=== PATIENT | female | born 1950 | race Hispanic/Latino ===

== ENCOUNTER 2018-08-20 11:21 | Outpatient (CLI) | payer MEDICARE | END 2018-08-20 11:22 | disposition home or self-care (01) | LOC: BICMAMMO 11:21 | PROVIDERS: ATTEND Family Medicine | DX: Z12.31 Encounter for screening mammogram for malignant neoplasm of breast (principal); R92.1 Mammographic calcification found on diagnostic imaging of breast; Z80.3 Family history of malignant neoplasm of breast; Z85.43 Personal history of malignant neoplasm of ovary | CPT/HCPCS: 77063; 77067 ==

== ENCOUNTER 2019-11-26 14:53 | Outpatient (CLI) | payer MEDICARE ==
--- NOTE | 2019-11-26 15:55 | MMO ---
Bilateral MAMMO Bilat Screen [facility]. CLINICAL HISTORY: Patient is 69 years old and is seen for screening. VIEWS: The views performed were: bilateral craniocaudal with tomosynthesis and bilateral mediolateral oblique with tomosynthesis. FILMS COMPARED: The present examination has been compared to prior imaging studies performed at [facility] on 07/24/2017, 08/16/2017 and 08/20/2018, and at [facility] on 11/24/2015. This study has been interpreted with the assistance of computer-aided detection. MAMMOGRAM FINDINGS: There are scattered fibroglandular densities. There are stable benign appearing calcifications seen in both breasts. There are no suspicious masses, suspicious calcifications, or new areas of architectural distortion. IMPRESSION: THERE IS NO MAMMOGRAPHIC EVIDENCE OF MALIGNANCY. A ROUTINE FOLLOW-UP MAMMOGRAM IN 1 YEAR IS RECOMMENDED. THE RESULTS OF THIS EXAM WERE SENT TO THE PATIENT. ACR BI-RADS Category 2 - Benign finding MAMMOGRAPHY NOTE: 1. A negative mammogram report should not delay a biopsy if a dominant of clinically suspicious mass is present. 2. Approximately 10% to 15% of breast cancers are not detected by mammography. 3. Adenosis and dense breasts may obscure an underlying neoplasm. Reported by: NELSON TORRES MD Electonically Signed: [id number]
== END 2019-11-26 14:54 | disposition home or self-care (01) ==
LOC: BICMAMMO 14:53
PROVIDERS: ATTEND Family Medicine
DX: Z12.31 Encounter for screening mammogram for malignant neoplasm of breast (principal)
CPT/HCPCS: 77063; 77067

== ENCOUNTER 2020-09-23 09:44 | Outpatient (CLI) | payer MEDICARE ==
--- NOTE | 2020-09-23 10:57 | MRI ---
MR the lumbar spine without contrast: 09/23/2020 History: Low back pain, right hip pain, radiculopathy COMPARISON: None. TECHNIQUE: Multiplanar multisequence MR images were obtained of lumbar spine without IV contrast FINDINGS: On the basis of 5 lumbar type vertebral bodies, conus medullaris terminates at theL1-2 level. The sagittal STIR imaging demonstrates degenerative edematous endplate changes at the L5-S1, L1-2, an d L2-3 level. There is significant mid lumbar spine levoscoliosis, centered at the L2-3 level. T12-L1:There is disc space narrowing and disc desiccation with mild disc bulge. No significant centra l canal stenosis. There is significant bilateral facet hypertrophy with moderate right and mild left neural foraminal s tenosis. L1-2:There is disc space narrowing and disc desiccation with disc bulge. There is bilateral facet hyp ertrophy and hypertrophy of the ligamentum flavum, right greater than left. Mild central canal stenosis with moderate right lateral recess stenosis. There is severe right neural foraminal stenosis and mild left neural foraminal stenosis. L2-3:There is disc space narrowing with disc desiccation and disc bulge. There is bilateral facet hyp ertrophy and hypertrophy of the ligamentum flavum. There is moderate central canal stenosis, moderate right neural foraminal stenosis, and mild left neural foraminal stenosis. L3-4:There is disc space and with disc desiccation and disc bulge. Prominent bilateral facet hypertro phy and hypertrophy of ligamentum flavum. Mild/moderate central canal stenosis. Mild right and severe left neural foraminal stenosis. L4-5:There is anterolisthesis at L4-5 measuring 1.3 cm. There is partial osseous fusion at the L4-5 l evel. Severe central canal stenosis. Bilateral facet hypertrophy with severe bilateral neural foraminal stenosis. L5-S1:There is disc desiccation and bilateral facet hypertrophy. Moderate bilateral neural foraminal stenosis. No significant central canal stenosis. Image retroperitoneal structures demonstratea lobulated contour of the upper pole of the right kidney , similar when compared to a CT of the chest performed 03/28/2012. IMPRESSION: Prominent multilevel degenerative change within the lumbar spine as described above.
--- NOTE | 2020-09-23 11:00 | RAD ---
4 views of the lumbar spine: 09/23/2020 COMPARISON: None HISTORY: Chronic right-sided hip pain, low back pain, radiculopathy FINDINGS: Severe levoscoliosis noted within the lumbar spine centered at the L2 level. Prominent dege nerative change of bilateral sacroiliac joints. Multiple postoperative clips are noted in the retroperitoneum. Multilevel disc space narrowing and degenerative endplate change. Anterolisthesis at L4-5 noted measu ring approximately 2 cm on neutral, flexion, and extension lateral views. No acute fracture is evident. IMPRESSION: Severe degenerative changes with prominent levoscoliosis of the lumbar spine and signific ant anterolisthesis at L4-5. Findings are better assessed on MRI also performed 09/23/2020
== END 2020-09-23 09:45 | disposition home or self-care (01) ==
LOC: BICMRI 09:44
PROVIDERS: ATTEND Surgery
DX: M54.5 Low back pain (principal); M25.551 Pain in right hip; M16.11 Unilateral primary osteoarthritis, right hip; M41.9 Scoliosis, unspecified; M43.16 Spondylolisthesis, lumbar region; M47.816 Spondylosis without myelopathy or radiculopathy, lumbar region
CPT/HCPCS: 72110; 72148

== ENCOUNTER 2021-02-02 13:00 | Inpatient (IN) | payer MEDICARE ==
[2021-02-02] MEDS ORDERED: Ondansetron PF 4 MG/2 ML Vial ONE (13:10)
[2021-02-02] MEDS ORDERED: Morphine 4 MG/ML VIAL ONE ×2 (13:18→17:31)
[2021-02-02 13:29] LABS: #Eosinphils 0.1 thou/uL (0.0-0.7); #Lymphocytes 3.7 thou/uL (1.20-3.40); #Neutrophils 10.9 thou/uL (1.40-6.50); %Basophils 0.3 % (0.0-1.0); %Eosinophils 0.9 % (0.0-10.0); %Lymphocytes 23.3 % (21.0-51.0); %Monocytes 6.3 % (0.0-10.0); %Neutrophils 69.3 % (42.0-75.0); Hemoglobin 11.7 g/dL (12.0-16.0); Mean Corpuscular HGB CONC 31.8 g/dL (32.0-36.0); Mean Corpuscular Hemoglobin 26.2 pg (27.0-31.0); Mean Corpuscular Volume 82.3 fL (78.0-98.0); Mean Platelet Volume 8.9 fL (7.4-10.4); Platelet Count 285 thou/uL (130-400); RBC Distribution Width 16.4 % (11.5-14.5); Red Blood Cell (RBC) Count 4.46 mill/uL (4.20-5.40); White Blood Cell (WBC) Count 15.8 thou/uL (4.8-10.8)
[2021-02-02 13:51] LABS: ALT (SGPT) 30 U/L (8-55); AST (SGOT) 82 U/L (5-34); Albumin 4.1 g/dL (3.4-4.8); Alkaline Phosphatase 97 U/L (40-110); Anion Gap 16 mmol/L (10-20); BUN (Urea Nitrogen) 18 mg/dL (9.8-20.1); Bilirubin, Total 1.3 mg/dL (0.2-1.2); Calc. Creatinine Clearance 0 mL/min (70-130); Calcium 9.9 mg/dL (7.8-10.44); Carbon Dioxide 23 mmol/L (23-31); Chloride 102 mmol/L (98-107); Globulin 3.5 g/dL (2.4-3.5); Glucose 163 mg/dL (80-115); Potassium 3.9 mmol/L (3.5-5.1); Protein, Total 7.6 g/dL (5.8-8.1); Sodium 137 mmol/L (136-145)
[2021-02-02] MEDS ORDERED: Dextrose 50% Abboject 50 ML SYRINGE ONE (14:10)
[2021-02-02] MEDS ORDERED: Promethazine HCl 25 MG/ML VIAL ONE (14:42)
[2021-02-02 14:47] LABS: Lipase 6435 U/L (8-78)
[2021-02-02] MEDS ORDERED: Haloperidol Lactate 5 MG/ML VIAL ONE (15:47)
[2021-02-02 19:14] VITALS: BMI 27.8
[2021-02-02] MEDS ORDERED: hydrALAZINE 20 MG/ML VIAL SLOW IVP PRN (19:17)
[2021-02-02] MEDS ORDERED: Morphine 4 MG/ML VIAL SLOW IVP PRN (19:18)
[2021-02-02] MEDS ORDERED: Lactated Ringer's 1,000 ML IV SCH (19:30)
[2021-02-02] MEDS ORDERED: Acetaminophen 325 MG TAB PO PRN (19:30)
[2021-02-02] MEDS ORDERED: Ondansetron PF 4 MG/2 ML Vial IVP PRN (19:30)
[2021-02-02] MEDS ORDERED: Ondansetron ODT 4 MG TAB SL PRN (19:30)
[2021-02-02] MEDS: Ondansetron PF 4 MG/2 ML Vial IVP PRN (19:48)
[2021-02-02] MEDS: Lactated Ringer's 1,000 ML IV SCH (19:48)
[2021-02-02 21:22] LABS: Hemoglobin 11.5 g/dL (12.0-16.0)
[2021-02-02] MEDS: Promethazine HCl 12.5 MG in Sodium Chloride 0.9% 50 ML IVPB PRN (21:41)
[2021-02-02] MEDS: Morphine 4 MG/ML VIAL SLOW IVP PRN (21:49)
[2021-02-03 01:50] LABS: SARS-CoV-2 PCR by NAA Not Detected (NotDetected)
[2021-02-03] MEDS: Ondansetron PF 4 MG/2 ML Vial IVP PRN (02:08)
[2021-02-03] MEDS: Morphine 4 MG/ML VIAL SLOW IVP PRN ×4 (02:08→23:49)
[2021-02-03] MEDS: Lactated Ringer's 1,000 ML IV SCH ×3 (02:08→19:36)
[2021-02-03 06:45] LABS: Band 3 % (5-11); Hemoglobin 11.8 g/dL (12.0-16.0); Lymphocytes 6 % (21-51); MDiff Complete? YES; Mean Corpuscular HGB CONC 31.4 g/dL (32.0-36.0); Mean Corpuscular Hemoglobin 26.3 pg (27.0-31.0); Mean Corpuscular Volume 83.6 fL (78.0-98.0); Monocytes 1 % (0-10); Neutrophil 90 % (42-75); Platelet Count 216 thou/uL (130-400); Platelet Morphology Comment Appears Adequate; RBC Distribution Width 16.6 % (11.5-14.5); Red Blood Cell (RBC) Count 4.51 mill/uL (4.20-5.40); White Blood Cell (WBC) Count 19.8 thou/uL (4.8-10.8)
[2021-02-03 06:54] LABS: ALT (SGPT) 37 U/L (8-55); AST (SGOT) 59 U/L (5-34); Albumin 3.3 g/dL (3.4-4.8); Alkaline Phosphatase 78 U/L (40-110); Anion Gap 16 mmol/L (10-20); BUN (Urea Nitrogen) 21 mg/dL (9.8-20.1); Bilirubin, Total 1.1 mg/dL (0.2-1.2); Calc. Creatinine Clearance 35 mL/min (70-130); Calcium 8.6 mg/dL (7.8-10.44); Carbon Dioxide 20 mmol/L (23-31); Cardiac Risk 1.8 (Less than 4.5); Chloride 106 mmol/L (98-107); Cholesterol 115 mg/dl (< 200 Desired); Globulin 3.3 g/dL (2.4-3.5); Glucose 129 mg/dL (80-115); HDL Cholesterol 65 mg/dL (>60 Neg Risk); LDL Cholesterol, Calculated 37 mg/dL; Lipase 591 U/L (8-78); Potassium 4.9 mmol/L (3.5-5.1); Protein, Total 6.6 g/dL (5.8-8.1); Sodium 137 mmol/L (136-145); Triglycerides 66 mg/dL (Less than 150)
[2021-02-03] MEDS: Enoxaparin Sodium 40 MG/0.4 ML SYRINGE SC SCH (08:55)
[2021-02-03] MEDS: Piperacillin/Tazobactam 3.375 GM in Sodium Chloride 0.9% 100 ML IVPB SCH ×3 (12:00→23:48)
[2021-02-03] MEDS ORDERED: Fentanyl 100 MCG/2 ML VIAL ONE (13:21)
[2021-02-03] MEDS ORDERED: HYDROmorphone 2 MG/ML VIAL ONE (13:22)
[2021-02-03] MEDS ORDERED: Lidocaine 1% w/Epinephrine 1:100K 20 ML VIAL ONE (13:25)
[2021-02-03] MEDS ORDERED: Bupivacaine PF 0.5% 30 ML VIAL ONE (13:25)
[2021-02-03] MEDS ORDERED: Iothalamate Meglumine 60% 50 ML VIAL FS ONE (13:25)
[2021-02-03] MEDS ORDERED: Propofol 1,000 MG/100 ML VIAL IV ONE (13:28)
[2021-02-03] MEDS ORDERED: Glycopyrrolate 0.2 MG/ML 5 ML SYRINGE ONE (13:51)
[2021-02-03] MEDS ORDERED: Rocuronium Bromide 10 MG/ML (10ML VIAL) ONE (13:51)
[2021-02-03] MEDS ORDERED: Lidocaine 1% PF 5 ML VIAL ONE (13:51)
[2021-02-03] MEDS ORDERED: PROPOFOL 200 MG/20 ML VIAL ONE (13:51)
[2021-02-03] MEDS ORDERED: Dexamethasone 20 MG/5 ML VIAL ONE (13:51)
[2021-02-03] MEDS ORDERED: Ondansetron PF 4 MG/2 ML Vial ONE (13:51)
[2021-02-03] MEDS ORDERED: PHENYLEPHRINE-NS 100 MCG/ML 10 ML SYRINGE ONE ×2 (13:51→14:43)
[2021-02-03] MEDS ORDERED: Ondansetron HCl/PF 4 MG/2 ML Vial IVP PRN (15:26)
[2021-02-03] MEDS ORDERED: Promethazine HCl 25 MG/ML VIAL IM PRN ×2 (15:26→15:28)
[2021-02-03] MEDS ORDERED: Promethazine HCl 25 MG/ML VIAL SLOW IVP PRN (15:26)
[2021-02-03] MEDS ORDERED: HYDROmorphone 2 MG/ML VIAL SLOW IVP PRN (15:26)
[2021-02-03] MEDS ORDERED: Dextrose 5% in Water 1,000 ML IV PRN (15:28)
[2021-02-03] MEDS ORDERED: Calcium Carbonate 500 MG ChewTAB PO PRN (15:28)
[2021-02-03] MEDS ORDERED: Mag-Al 1200 mg/1200 mg/30 ML UDCUP PO PRN (15:28)
[2021-02-03] MEDS ORDERED: Dextrose 50% Abboject 50 ML SYRINGE SLOW IVP PRN ×2 (15:28→18:20)
[2021-02-03] MEDS ORDERED: Morphine 4 MG/ML VIAL SLOW IVP PRN (15:49)
[2021-02-03] MEDS ORDERED: Insulin Regular 300 UNITS/3 ML VIAL SC PRN (18:20)
[2021-02-04] MEDS: Lactated Ringer's 1,000 ML IV SCH ×3 (04:04→19:46)
[2021-02-04] MEDS: Piperacillin/Tazobactam 3.375 GM in Sodium Chloride 0.9% 100 ML IVPB SCH ×4 (05:01→23:15)
[2021-02-04] MEDS: Morphine 4 MG/ML VIAL SLOW IVP PRN ×2 (05:07→10:38)
[2021-02-04 05:13] LABS: ALT (SGPT) 36 U/L (8-55); AST (SGOT) 54 U/L (5-34); Albumin 2.7 g/dL (3.4-4.8); Alkaline Phosphatase 55 U/L (40-110); Anion Gap 11 mmol/L (10-20); BUN (Urea Nitrogen) 23 mg/dL (9.8-20.1); Bilirubin, Total 1.3 mg/dL (0.2-1.2); Calc. Creatinine Clearance 46 mL/min (70-130); Calcium 8.1 mg/dL (7.8-10.44); Carbon Dioxide 20 mmol/L (23-31); Chloride 111 mmol/L (98-107); Globulin 2.6 g/dL (2.4-3.5); Glucose 125 mg/dL (80-115); Potassium 4.1 mmol/L (3.5-5.1); Protein, Total 5.3 g/dL (5.8-8.1); Sodium 138 mmol/L (136-145)
[2021-02-04 05:16] LABS: Band 29 % (5-11); Hemoglobin 9.3 g/dL (12.0-16.0); Lymphocytes 6 % (21-51); MDiff Complete? YES; Mean Corpuscular HGB CONC 31.8 g/dL (32.0-36.0); Mean Corpuscular Hemoglobin 26.7 pg (27.0-31.0); Mean Platelet Volume 9.6 fL (7.4-10.4); Monocytes 1 % (0-10); Neutrophil 64 % (42-75); Platelet Count 164 thou/uL (130-400); Platelet Morphology Comment Appears Adequate; RBC Distribution Width 16.9 % (11.5-14.5); Red Blood Cell (RBC) Count 3.49 mill/uL (4.20-5.40); White Blood Cell (WBC) Count 18.8 thou/uL (4.8-10.8)
[2021-02-04] MEDS: Enoxaparin Sodium 40 MG/0.4 ML SYRINGE SC SCH (09:00)
[2021-02-04] MEDS ORDERED: traMADol HCl 50 MG TAB PO PRN ×3 (09:11→09:19)
[2021-02-04] MEDS ORDERED: Docusate 100 MG CAP PO SCH (09:30)
[2021-02-04] MEDS ORDERED: Oxybutynin 5 MG TAB PO SCH ×2 (09:30→10:15)
[2021-02-04] MEDS ORDERED: Calcium Carbonate 600 MG + Vit D TAB PO SCH (09:30)
[2021-02-04] MEDS ORDERED: Rosuvastatin 10 MG TAB PO SCH (09:30)
[2021-02-04] MEDS: Famotidine/PF 20 mg/2ml Vial SLOW IVP SCH (10:31)
[2021-02-04] MEDS: Famotidine 20 MG TAB PO SCH (10:32)
[2021-02-04] MEDS ORDERED: Polyethylene Glycol 3350 17 GM Packet PO SCH (11:00)
[2021-02-04] MEDS: Ondansetron PF 4 MG/2 ML Vial IVP PRN (16:06)
[2021-02-04] MEDS: Amitriptyline HCl 10 MG TAB PO SCH (19:47)
[2021-02-04] MEDS: Gabapentin 300 MG CAP PO SCH (19:47)
[2021-02-04] MEDS ORDERED: Non-Formulary Item 1 EACH (Gabapentin [Gabapentin] 600 MG Tablet) PO SCH (21:00)
[2021-02-05] MEDS: Piperacillin/Tazobactam 3.375 GM in Sodium Chloride 0.9% 100 ML IVPB SCH ×4 (05:39→23:59)
[2021-02-05] MEDS: Lactated Ringer's 1,000 ML IV SCH ×3 (05:39→20:19)
[2021-02-05] MEDS: Ondansetron PF 4 MG/2 ML Vial IVP PRN (06:04)
[2021-02-05 06:08] LABS: #Eosinphils 0.1 thou/uL (0.0-0.7); #Lymphocytes 1.2 thou/uL (1.20-3.40); #Monocytes 0.8 thou/uL (0.11-0.59); #Neutrophils 17.3 thou/uL (1.40-6.50); %Basophils 0.1 % (0.0-1.0); %Eosinophils 0.4 % (0.0-10.0); %Lymphocytes 6.2 % (21.0-51.0); %Monocytes 3.9 % (0.0-10.0); %Neutrophils 89.4 % (42.0-75.0); Hemoglobin 10.6 g/dL (12.0-16.0); Mean Corpuscular HGB CONC 31.7 g/dL (32.0-36.0); Mean Corpuscular Hemoglobin 26.6 pg (27.0-31.0); Mean Corpuscular Volume 83.7 fL (78.0-98.0); Mean Platelet Volume 8.9 fL (7.4-10.4); Platelet Count 170 thou/uL (130-400); RBC Distribution Width 16.6 % (11.5-14.5); Red Blood Cell (RBC) Count 3.99 mill/uL (4.20-5.40); White Blood Cell (WBC) Count 19.3 thou/uL (4.8-10.8)
[2021-02-05 06:27] LABS: Lactic Acid 0.7 mmol/L (0.5-2.2)
[2021-02-05 06:31] LABS: Magnesium 1.9 mg/dL (1.6-2.6); Phosphorus 3.3 mg/dL (2.3-4.7)
[2021-02-05] MEDS: Promethazine HCl 12.5 MG in Sodium Chloride 0.9% 50 ML IVPB PRN ×2 (06:41→12:23)
[2021-02-05] MEDS ORDERED: Polyethylene Glycol 3350 17 GM Packet PO SCH (09:00)
[2021-02-05] MEDS ORDERED: ACARBOSE 25 MG PO SCH (09:00)
[2021-02-05] MEDS ORDERED: Non-Formulary Item 1 EACH (Calcium Carb/Vitamin D3/Vit K1 [Calcium + D Soft Chewable Tabl PO SCH (09:00)
[2021-02-05] MEDS: Calcium Carbonate 600 MG + Vit D TAB PO SCH (09:39)
[2021-02-05] MEDS: Famotidine/PF 20 mg/2ml Vial SLOW IVP SCH (09:43)
[2021-02-05] MEDS: Enoxaparin Sodium 40 MG/0.4 ML SYRINGE SC SCH (09:44)
[2021-02-05] MEDS: Docusate 100 MG CAP PO SCH (09:49)
[2021-02-05] MEDS: Rosuvastatin 10 MG TAB PO SCH (09:50)
[2021-02-05] MEDS: Famotidine 20 MG TAB PO SCH (09:50)
[2021-02-05] MEDS: Oxybutynin 5 MG TAB PO SCH (09:50)
[2021-02-05 11:35] LABS: Hemoglobin 11.8 g/dL (12.0-16.0); Lymphocytes 4 % (21-51); MDiff Complete? YES; Mean Corpuscular HGB CONC 32.1 g/dL (32.0-36.0); Mean Corpuscular Hemoglobin 26.9 pg (27.0-31.0); Mean Corpuscular Volume 83.8 fL (78.0-98.0); Mean Platelet Volume 8.9 fL (7.4-10.4); Monocytes 2 % (0-10); Neutrophil 94 % (42-75); Platelet Count 192 thou/uL (130-400); Platelet Morphology Comment Appears Adequate; RBC Distribution Width 16.6 % (11.5-14.5); Red Blood Cell (RBC) Count 4.37 mill/uL (4.20-5.40); White Blood Cell (WBC) Count 20.8 thou/uL (4.8-10.8)
[2021-02-05] MEDS ORDERED: Sodium Chloride 0.9% (PF) 10 ML VIAL FS PRN (14:45)
[2021-02-05] MEDS: Pantoprazole 40 MG VIAL IVP SCH (15:25)
[2021-02-05] MEDS: Morphine 4 MG/ML VIAL SLOW IVP PRN ×2 (17:43→22:21)
[2021-02-05] MEDS: Amitriptyline HCl 10 MG TAB PO SCH (20:18)
[2021-02-05] MEDS: Gabapentin 300 MG CAP PO SCH (20:18)
[2021-02-05] MEDS ORDERED: Pantoprazole 40 MG VIAL IVP SCH (21:00)
[2021-02-06] MEDS: Promethazine HCl 12.5 MG in Sodium Chloride 0.9% 50 ML IVPB PRN ×2 (00:41→20:04)
[2021-02-06] MEDS: Lactated Ringer's 1,000 ML IV SCH ×3 (02:35→20:26)
[2021-02-06] MEDS: Pantoprazole 40 MG VIAL IVP SCH ×2 (02:36→15:12)
[2021-02-06 05:49] LABS: #Eosinphils 0.1 thou/uL (0.0-0.7); #Monocytes 0.6 thou/uL (0.11-0.59); #Neutrophils 10.5 thou/uL (1.40-6.50); %Eosinophils 1.2 % (0.0-10.0); %Lymphocytes 8.4 % (21.0-51.0); %Monocytes 4.7 % (0.0-10.0); %Neutrophils 85.7 % (42.0-75.0); Hemoglobin 9.9 g/dL (12.0-16.0); Mean Corpuscular HGB CONC 31.3 g/dL (32.0-36.0); Mean Corpuscular Hemoglobin 26.3 pg (27.0-31.0); Platelet Count 151 thou/uL (130-400); RBC Distribution Width 16.7 % (11.5-14.5); Red Blood Cell (RBC) Count 3.76 mill/uL (4.20-5.40); White Blood Cell (WBC) Count 12.2 thou/uL (4.8-10.8)
[2021-02-06] MEDS: Piperacillin/Tazobactam 3.375 GM in Sodium Chloride 0.9% 100 ML IVPB SCH ×4 (06:15→23:15)
[2021-02-06 08:09] LABS: Anion Gap 10 mmol/L (10-20); BUN (Urea Nitrogen) 19 mg/dL (9.8-20.1); Calc. Creatinine Clearance 43 mL/min (70-130); Calcium 8.4 mg/dL (7.8-10.44); Carbon Dioxide 25 mmol/L (23-31); Chloride 113 mmol/L (98-107); Glucose 87 mg/dL (80-115); Potassium 3.9 mmol/L (3.5-5.1); Sodium 144 mmol/L (136-145)
[2021-02-06] MEDS: Oxybutynin 5 MG TAB PO SCH (09:00)
[2021-02-06] MEDS: Docusate 100 MG CAP PO SCH (09:00)
[2021-02-06] MEDS: Rosuvastatin 10 MG TAB PO SCH (09:00)
[2021-02-06] MEDS: Calcium Carbonate 600 MG + Vit D TAB PO SCH (09:00)
[2021-02-06] MEDS: Enoxaparin Sodium 40 MG/0.4 ML SYRINGE SC SCH (10:07)
[2021-02-06 13:06] LABS: Hemoglobin 9.9 g/dL (12.0-16.0); Mean Corpuscular HGB CONC 32.1 g/dL (32.0-36.0); Mean Corpuscular Hemoglobin 26.9 pg (27.0-31.0); Mean Corpuscular Volume 83.6 fL (78.0-98.0); Mean Platelet Volume 8.7 fL (7.4-10.4); Platelet Count 160 thou/uL (130-400); RBC Distribution Width 16.5 % (11.5-14.5); Red Blood Cell (RBC) Count 3.67 mill/uL (4.20-5.40)
[2021-02-06 13:24] LABS: ALT (SGPT) 24 U/L (8-55); AST (SGOT) 26 U/L (5-34); Albumin 2.7 g/dL (3.4-4.8); Alkaline Phosphatase 86 U/L (40-110); Anion Gap 13 mmol/L (10-20); BUN (Urea Nitrogen) 18 mg/dL (9.8-20.1); Bilirubin, Total 1.1 mg/dL (0.2-1.2); Calc. Creatinine Clearance 45 mL/min (70-130); Calcium 8.5 mg/dL (7.8-10.44); Carbon Dioxide 22 mmol/L (23-31); Chloride 112 mmol/L (98-107); Globulin 3.1 g/dL (2.4-3.5); Glucose 74 mg/dL (80-115); Lipase 62 U/L (8-78); Potassium 3.5 mmol/L (3.5-5.1); Protein, Total 5.8 g/dL (5.8-8.1); Sodium 143 mmol/L (136-145)
[2021-02-06] MEDS: hydrALAZINE 20 MG/ML VIAL SLOW IVP PRN ×2 (13:27→20:06)
[2021-02-06 13:37] LABS: Anisocytosis SLIGHT = 6-15 cells (100X) (0-5/hpf); Band 4 % (5-11); Lymphocytes 5 % (21-51); MDiff Complete? YES; Monocytes 3 % (0-10); Neutrophil 88 % (42-75); Platelet Morphology Comment Appears Adequate; Polychromasia SLIGHT = 2-3 cells (100X) (0-2/hpf)
[2021-02-06 14:25] LABS: Anion Gap 17 mmol/L (10-20); BUN (Urea Nitrogen) 19 mg/dL (9.8-20.1); Calc. Creatinine Clearance 44 mL/min (70-130); Calcium 8.8 mg/dL (7.8-10.44); Carbon Dioxide 19 mmol/L (23-31); Chloride 111 mmol/L (98-107); Glucose 64 mg/dL (80-115); Potassium 3.7 mmol/L (3.5-5.1); Sodium 143 mmol/L (136-145)
[2021-02-06] MEDS: Amitriptyline HCl 10 MG TAB PO SCH (20:56)
[2021-02-06] MEDS: Gabapentin 300 MG CAP PO SCH (20:56)
[2021-02-06] MEDS: Dextrose 5% in Water 1,000 ML IV PRN (23:15)
[2021-02-07] MEDS: Lactated Ringer's 1,000 ML IV SCH ×3 (03:21→20:26)
[2021-02-07] MEDS: Dextrose 5% in Water 1,000 ML IV PRN (03:22)
[2021-02-07] MEDS: Pantoprazole 40 MG VIAL IVP SCH ×2 (03:27→14:24)
[2021-02-07] MEDS: Piperacillin/Tazobactam 3.375 GM in Sodium Chloride 0.9% 100 ML IVPB SCH ×4 (05:09→23:08)
[2021-02-07 06:42] LABS: #Eosinphils 0.2 thou/uL (0.0-0.7); #Lymphocytes 0.7 thou/uL (1.20-3.40); #Monocytes 0.5 thou/uL (0.11-0.59); %Basophils 0.2 % (0.0-1.0); %Eosinophils 2.3 % (0.0-10.0); %Lymphocytes 9.3 % (21.0-51.0); %Monocytes 7.1 % (0.0-10.0); %Neutrophils 81.2 % (42.0-75.0); Hemoglobin 8.9 g/dL (12.0-16.0); Mean Corpuscular HGB CONC 32.6 g/dL (32.0-36.0); Mean Corpuscular Hemoglobin 26.9 pg (27.0-31.0); Mean Corpuscular Volume 82.4 fL (78.0-98.0); Mean Platelet Volume 8.4 fL (7.4-10.4); Platelet Count 124 thou/uL (130-400); RBC Distribution Width 16.2 % (11.5-14.5); White Blood Cell (WBC) Count 7.4 thou/uL (4.8-10.8)
[2021-02-07] MEDS: Rosuvastatin 10 MG TAB PO SCH (09:00)
[2021-02-07] MEDS: Docusate 100 MG CAP PO SCH (09:00)
[2021-02-07] MEDS: Oxybutynin 5 MG TAB PO SCH (09:00)
[2021-02-07] MEDS: Calcium Carbonate 600 MG + Vit D TAB PO SCH (09:00)
[2021-02-07] MEDS: Enoxaparin Sodium 40 MG/0.4 ML SYRINGE SC SCH (09:10)
[2021-02-07] MEDS: hydrALAZINE 20 MG/ML VIAL SLOW IVP PRN ×2 (12:12→17:07)
[2021-02-07] MEDS: Ondansetron PF 4 MG/2 ML Vial IVP PRN (17:23)
[2021-02-07] MEDS ORDERED: NIFEdipine XL 30 MG TAB PO SCH (18:45)
[2021-02-07] MEDS: Amitriptyline HCl 10 MG TAB PO SCH (21:06)
[2021-02-07] MEDS: Gabapentin 300 MG CAP PO SCH (21:07)
[2021-02-07] MEDS ORDERED: Lisinopril 10 MG TAB PO SCH (21:15)
[2021-02-07] MEDS ORDERED: Loperamide HCl 2 MG CAP PO SCH (22:53)
[2021-02-08] MEDS: Pantoprazole 40 MG VIAL IVP SCH ×2 (03:19→15:00)
[2021-02-08] MEDS: Lactated Ringer's 1,000 ML IV SCH (03:19)
[2021-02-08] MEDS: Piperacillin/Tazobactam 3.375 GM in Sodium Chloride 0.9% 100 ML IVPB SCH ×3 (05:22→18:00)
[2021-02-08] MEDS: hydrALAZINE 20 MG/ML VIAL SLOW IVP PRN ×2 (05:24→20:26)
[2021-02-08 06:41] LABS: #Lymphocytes 0.5 thou/uL (1.20-3.40); #Monocytes 0.3 thou/uL (0.11-0.59); #Neutrophils 4.6 thou/uL (1.40-6.50); %Basophils 0.9 % (0.0-1.0); %Eosinophils 0.5 % (0.0-10.0); %Lymphocytes 8.8 % (21.0-51.0); %Monocytes 5.3 % (0.0-10.0); %Neutrophils 84.5 % (42.0-75.0); Hemoglobin 9.1 g/dL (12.0-16.0); Mean Corpuscular HGB CONC 31.6 g/dL (32.0-36.0); Mean Corpuscular Volume 82.3 fL (78.0-98.0); Mean Platelet Volume 8.3 fL (7.4-10.4); Platelet Count 115 thou/uL (130-400); RBC Distribution Width 16.3 % (11.5-14.5); Red Blood Cell (RBC) Count 3.51 mill/uL (4.20-5.40); White Blood Cell (WBC) Count 5.5 thou/uL (4.8-10.8)
[2021-02-08 06:52] LABS: Anion Gap 13 mmol/L (10-20); BUN (Urea Nitrogen) 9 mg/dL (9.8-20.1); Calc. Creatinine Clearance 47 mL/min (70-130); Calcium 7.7 mg/dL (7.8-10.44); Carbon Dioxide 20 mmol/L (23-31); Chloride 108 mmol/L (98-107); Glucose 81 mg/dL (80-115); Sodium 138 mmol/L (136-145)
[2021-02-08 06:57] LABS: Potassium 2.5 mmol/L (3.5-5.1)
[2021-02-08] MEDS ORDERED: Lactated Ringer's 1,000 ML IV SCH (07:37)
[2021-02-08] MEDS ORDERED: NIFEdipine XL 30 MG TAB PO SCH (09:00)
[2021-02-08] MEDS: Ondansetron PF 4 MG/2 ML Vial IVP PRN ×2 (09:19→19:40)
[2021-02-08] MEDS: Docusate 100 MG CAP PO SCH (09:26)
[2021-02-08] MEDS: Calcium Carbonate 600 MG + Vit D TAB PO SCH (09:26)
[2021-02-08] MEDS: Enoxaparin Sodium 40 MG/0.4 ML SYRINGE SC SCH (09:26)
[2021-02-08] MEDS: Lisinopril 10 MG TAB PO SCH (09:27)
[2021-02-08] MEDS: Oxybutynin 5 MG TAB PO SCH (09:27)
[2021-02-08] MEDS: Rosuvastatin 10 MG TAB PO SCH (09:28)
[2021-02-08] MEDS: Potassium Chloride 20 MEQ in Premix Bag 1 BAG IVPB SCH ×2 (13:45→19:13)
[2021-02-08 16:44] LABS: Anion Gap 16 mmol/L (10-20); BUN (Urea Nitrogen) 9 mg/dL (9.8-20.1); Calc. Creatinine Clearance 49 mL/min (70-130); Calcium 7.4 mg/dL (7.8-10.44); Carbon Dioxide 17 mmol/L (23-31); Chloride 106 mmol/L (98-107); Glucose 75 mg/dL (80-115); Magnesium 1.3 mg/dL (1.6-2.6); Potassium 3.3 mmol/L (3.5-5.1); Sodium 136 mmol/L (136-145)
[2021-02-08] MEDS ORDERED: Magnesium Oxide 400 MG TAB PO SCH (17:30)
[2021-02-08] MEDS: Amitriptyline HCl 10 MG TAB PO SCH (20:27)
[2021-02-08] MEDS: Gabapentin 300 MG CAP PO SCH (20:27)
[2021-02-08] MEDS: Acetaminophen 500 MG TAB PO PRN (23:53)
[2021-02-09] MEDS: Pantoprazole 40 MG VIAL IVP SCH ×2 (02:51→17:44)
[2021-02-09 07:16] LABS: #Basophils 0.1 thou/uL (0.0-0.2); #Lymphocytes 0.2 thou/uL (1.20-3.40); #Monocytes 0.1 thou/uL (0.11-0.59); #Neutrophils 4.3 thou/uL (1.40-6.50); %Basophils 1.5 % (0.0-1.0); %Eosinophils 0.8 % (0.0-10.0); %Lymphocytes 4.6 % (21.0-51.0); %Neutrophils 90.1 % (42.0-75.0); Hemoglobin 10.1 g/dL (12.0-16.0); Mean Corpuscular HGB CONC 33.2 g/dL (32.0-36.0); Mean Corpuscular Hemoglobin 27.2 pg (27.0-31.0); Mean Corpuscular Volume 82.1 fL (78.0-98.0); Mean Platelet Volume 8.9 fL (7.4-10.4); Platelet Count 117 thou/uL (130-400); RBC Distribution Width 16.5 % (11.5-14.5); Red Blood Cell (RBC) Count 3.72 mill/uL (4.20-5.40); White Blood Cell (WBC) Count 4.8 thou/uL (4.8-10.8)
[2021-02-09 07:58] LABS: Anion Gap 15 mmol/L (10-20); BUN (Urea Nitrogen) 9 mg/dL (9.8-20.1); Calc. Creatinine Clearance 39 mL/min (70-130); Calcium 7.6 mg/dL (7.8-10.44); Carbon Dioxide 16 mmol/L (23-31); Chloride 106 mmol/L (98-107); Glucose 167 mg/dL (80-115); Magnesium 1.1 mg/dL (1.6-2.6); Sodium 134 mmol/L (136-145)
[2021-02-09] MEDS ORDERED: Loperamide HCl 2 MG CAP PO SCH ×2 (08:25→22:45)
[2021-02-09] MEDS: Lisinopril 10 MG TAB PO SCH (08:53)
[2021-02-09] MEDS: Amlodipine 5 MG TAB PO SCH (08:53)
[2021-02-09] MEDS: Lactinex Tablet PO SCH (08:53)
[2021-02-09] MEDS: Acetaminophen 500 MG TAB PO PRN ×2 (08:54→17:39)
[2021-02-09] MEDS: Oxybutynin 5 MG TAB PO SCH (08:54)
[2021-02-09] MEDS: Docusate 100 MG CAP PO SCH (08:54)
[2021-02-09] MEDS: Calcium Carbonate 600 MG + Vit D TAB PO SCH (08:55)
[2021-02-09] MEDS: Rosuvastatin 10 MG TAB PO SCH (09:00)
[2021-02-09] MEDS ORDERED: Iopamidol 370 76% 100 ML VIAL ONE (11:21)
[2021-02-09] MEDS: Cholestyramine/Aspartame 4 gm Packet PO SCH ×2 (13:30→22:10)
[2021-02-09] MEDS: Gabapentin 300 MG CAP PO SCH (20:32)
[2021-02-09] MEDS: Amitriptyline HCl 10 MG TAB PO SCH (20:32)
[2021-02-09] MEDS: Ondansetron PF 4 MG/2 ML Vial IVP PRN (20:41)
[2021-02-10] MEDS: hydrALAZINE 20 MG/ML VIAL SLOW IVP PRN (00:02)
[2021-02-10] MEDS: Acetaminophen 500 MG TAB PO PRN (00:52)
[2021-02-10 01:00] LABS: Bacteria/HPF None Seen HPF (None Seen); Bilirubin Negative (Negative); Blood, Urine 2+ (Negative); Clarity Clear (Clear); Glucose, Urine (Dipstick) Normal (Negative); Ketone, Urine Negative (Negative); Leukocyte 500 Leu/uL (Negative); Nitrite Negative (Negative); Protein, Urine (Dipstick) Negative (Neg-Trace); Specific Gravity, Urine 1.008 (1.002-1.036); Squamous Epithelial 0-3 HPF (0-3); Urobilinogen Normal mg/dL (Less than 2); WBC/HPF Greater than 50 HPF (0-3); Yeast-Budding 1+ HPF (None Seen); pH, Urine 6.5 (5.0-9.0)
[2021-02-10 01:02] LABS: Urine Culture Reflex Yes Yes
[2021-02-10] MEDS: Pantoprazole 40 MG VIAL IVP SCH ×2 (02:49→15:00)
[2021-02-10] MEDS ORDERED: Acetaminophen 325 MG TAB PO SCH (03:45)
[2021-02-10 07:44] LABS: Anion Gap 10 mmol/L (10-20); BUN (Urea Nitrogen) 9 mg/dL (9.8-20.1); Calc. Creatinine Clearance 36 mL/min (70-130); Calcium 7.5 mg/dL (7.8-10.44); Carbon Dioxide 21 mmol/L (23-31); Chloride 107 mmol/L (98-107); Glucose 80 mg/dL (80-115); Magnesium 1.1 mg/dL (1.6-2.6); Sodium 135 mmol/L (136-145)
[2021-02-10 08:08] LABS: #Lymphocytes 0.4 thou/uL (1.20-3.40); #Monocytes 0.1 thou/uL (0.11-0.59); #Neutrophils 3.4 thou/uL (1.40-6.50); %Eosinophils 0.4 % (0.0-10.0); %Lymphocytes 10.7 % (21.0-51.0); %Monocytes 3.3 % (0.0-10.0); %Neutrophils 85.6 % (42.0-75.0); Hemoglobin 8.5 g/dL (12.0-16.0); Mean Corpuscular HGB CONC 31.1 g/dL (32.0-36.0); Mean Corpuscular Hemoglobin 25.7 pg (27.0-31.0); Mean Corpuscular Volume 82.9 fL (78.0-98.0); Mean Platelet Volume 9.2 fL (7.4-10.4); Platelet Count 109 thou/uL (130-400); RBC Distribution Width 16.5 % (11.5-14.5); Red Blood Cell (RBC) Count 3.32 mill/uL (4.20-5.40)
[2021-02-10] MEDS ORDERED: Acetaminophen 325 MG TAB PO PRN (08:16)
[2021-02-10] MEDS ORDERED: Potassium Chloride 20 MEQ TAB PO SCH (08:45)
[2021-02-10] MEDS ORDERED: Magnesium 2 GM/50 ML 2 GM in Premix Bag 1 BAG IVPB SCH (09:00)
[2021-02-10] MEDS: Calcium Carbonate 600 MG + Vit D TAB PO SCH (09:37)
[2021-02-10] MEDS: Oxybutynin 5 MG TAB PO SCH (09:38)
[2021-02-10] MEDS: Cholestyramine/Aspartame 4 gm Packet PO SCH ×2 (09:38→20:21)
[2021-02-10] MEDS: Rosuvastatin 10 MG TAB PO SCH (09:38)
[2021-02-10] MEDS: Amlodipine 5 MG TAB PO SCH (09:38)
[2021-02-10] MEDS: Lactinex Tablet PO SCH (09:38)
[2021-02-10] MEDS: Lisinopril 10 MG TAB PO SCH (09:38)
[2021-02-10] MEDS: cefTRIAXone\\ROCEPHIN 2 GM in Sodium Chloride 0.9% 100 ML IVPB SCH (12:11)
[2021-02-10] MEDS ORDERED: Fentanyl 100 MCG/2 ML VIAL ONE ×2 (13:23→14:54)
[2021-02-10] MEDS ORDERED: PHENYLEPHRINE-NS 100 MCG/ML 10 ML SYRINGE ONE (13:34)
[2021-02-10] MEDS ORDERED: Lidocaine 1% PF 5 ML VIAL ONE (13:34)
[2021-02-10] MEDS ORDERED: Ondansetron PF 4 MG/2 ML Vial ONE (13:34)
[2021-02-10] MEDS ORDERED: PROPOFOL 200 MG/20 ML VIAL ONE (13:34)
[2021-02-10] MEDS ORDERED: Succinylcholine 200 MG/10 ml SYRINGE FS ONE (13:34)
[2021-02-10] MEDS ORDERED: Promethazine HCl 25 MG/ML VIAL IM PRN (14:12)
[2021-02-10] MEDS ORDERED: Promethazine HCl 25 MG/ML VIAL SLOW IVP PRN (14:12)
[2021-02-10] MEDS ORDERED: Ondansetron HCl/PF 4 MG/2 ML Vial IVP PRN (14:12)
[2021-02-10] MEDS ORDERED: Meperidine HCl/PF 25 MG/ML VIAL SLOW IVP PRN (14:12)
[2021-02-10] MEDS ORDERED: Iothalamate Meglumine 60% 50 ML VIAL FS ONE (14:17)
[2021-02-10] MEDS ORDERED: Meperidine HCl/PF 25 MG/ML VIAL ONE (14:27)
[2021-02-10] MEDS ORDERED: Sodium Bicarbonate 2.5 MEQ/5 ML VIAL ONE ×2 (14:53→14:58)
[2021-02-10] MEDS ORDERED: Midazolam HCl 2 mg/2 ml Vial ONE (14:54)
[2021-02-10 15:39] LABS: INR-International Normal Ratio 1.1; Prothrombin Time 14.8 sec (12.0-14.7)
[2021-02-10 15:40] LABS: PTT 39.3 sec (22.9-36.1)
[2021-02-10] MEDS: Amitriptyline HCl 10 MG TAB PO SCH (20:21)
[2021-02-10] MEDS: Gabapentin 300 MG CAP PO SCH (20:21)
[2021-02-11] MEDS: Pantoprazole 40 MG VIAL IVP SCH (00:35)
[2021-02-11 06:05] LABS: ALT (SGPT) 19 U/L (8-55); AST (SGOT) 26 U/L (5-34); Albumin 2.3 g/dL (3.4-4.8); Alkaline Phosphatase 85 U/L (40-110); Anion Gap 11 mmol/L (10-20); BUN (Urea Nitrogen) 10 mg/dL (9.8-20.1); Bilirubin, Total 0.3 mg/dL (0.2-1.2); Calc. Creatinine Clearance 59 mL/min (70-130); Calcium 7.4 mg/dL (7.8-10.44); Carbon Dioxide 21 mmol/L (23-31); Chloride 106 mmol/L (98-107); Globulin 2.7 g/dL (2.4-3.5); Glucose 170 mg/dL (80-115); Lipase 21 U/L (8-78); Magnesium 1.5 mg/dL (1.6-2.6); Potassium 3.5 mmol/L (3.5-5.1); Sodium 134 mmol/L (136-145)
[2021-02-11] MEDS: Oxybutynin 5 MG TAB PO SCH (10:57)
[2021-02-11] MEDS: Lisinopril 10 MG TAB PO SCH (10:59)
[2021-02-11] MEDS: Calcium Carbonate 600 MG + Vit D TAB PO SCH (10:59)
[2021-02-11] MEDS: Rosuvastatin 10 MG TAB PO SCH (10:59)
[2021-02-11] MEDS: Lactinex Tablet PO SCH (10:59)
[2021-02-11] MEDS: Amlodipine 5 MG TAB PO SCH (10:59)
[2021-02-11 12:27] VITALS: BP 134/63; TEMP 97.8
[2021-02-11] MEDS: cefTRIAXone\\ROCEPHIN 2 GM in Sodium Chloride 0.9% 100 ML IVPB SCH (13:06)
[2021-02-16 17:14] LABS: Yeast Identification Final report (.)
== END 2021-02-11 17:25 | disposition home health service (06) | DRG 417 ==
LOC: ERS 13:00 → ONC 17:03 → OBSVTOIN 19:08
PROVIDERS: ADMIT Hospitalist; ATTEND Internal Medicine
PROC: 0FT44ZZ Resection of Gallbladder, Percutaneous Endoscopic Approach (ICD-10-PCS; principal; 2021-02-03)
PROC: 0DNW4ZZ Release Peritoneum, Percutaneous Endoscopic Approach (ICD-10-PCS; 2021-02-03)
PROC: BF101ZZ Fluoroscopy of Bile Ducts using Low Osmolar Contrast (ICD-10-PCS; 2021-02-03)
PROC: 0D9670Z Drainage of Stomach with Drainage Device, Via Natural or Artificial Opening (ICD-10-PCS; 2021-02-03)
PROC: 0T933ZZ Drainage of Right Kidney Pelvis, Percutaneous Approach (ICD-10-PCS; 2021-02-10)
PROC: 0T943ZZ Drainage of Left Kidney Pelvis, Percutaneous Approach (ICD-10-PCS; 2021-02-10)
PROC: 0TJB8ZZ Inspection of Bladder, Via Natural or Artificial Opening Endoscopic (ICD-10-PCS; 2021-02-10)
DX: K85.10 Biliary acute pancreatitis without necrosis or infection (principal); A41.9 Sepsis, unspecified organism; K80.00 Calculus of gallbladder with acute cholecystitis without obstruction; K82.1 Hydrops of gallbladder; N17.9 Acute kidney failure, unspecified; K56.7 Ileus, unspecified; K91.89 Other postprocedural complications and disorders of digestive system; K52.1 Toxic gastroenteritis and colitis; N13.30 Unspecified hydronephrosis; N30.40 Irradiation cystitis without hematuria; K82.A1 Gangrene of gallbladder in cholecystitis; Z20.822 Contact with and (suspected) exposure to COVID-19; E11.9 Type 2 diabetes mellitus without complications; E78.5 Hyperlipidemia, unspecified; M54.9 Dorsalgia, unspecified; G89.29 Other chronic pain; K21.9 Gastro-esophageal reflux disease without esophagitis; E78.00 Pure hypercholesterolemia, unspecified; I11.9 Hypertensive heart disease without heart failure; K66.0 Peritoneal adhesions (postprocedural) (postinfection); T36.95XA Adverse effect of unspecified systemic antibiotic, initial encounter; R59.1 Generalized enlarged lymph nodes; B37.9 Candidiasis, unspecified; Z85.41 Personal history of malignant neoplasm of cervix uteri; Z92.21 Personal history of antineoplastic chemotherapy; Z92.3 Personal history of irradiation; Z79.84 Long term (current) use of oral hypoglycemic drugs; Z79.899 Other long term (current) drug therapy; Z90.710 Acquired absence of both cervix and uterus; Z88.2 Allergy status to sulfonamides; Z90.49 Acquired absence of other specified parts of digestive tract; Z88.1 Allergy status to other antibiotic agents; Z87.440 Personal history of urinary (tract) infections
CPT/HCPCS: 36415; 36416; 47532; 49060; 50431; 71045; 74018; 74177; 76705; 77002; 80048; 80053; 80061; 81001; 83605; 83690; 83735; 84100; 84145; 84484; 85025; 85610; 85730; 87040; 87070; 87077; 87086; 87106; 87186; 87205; 87324; 87449; 87635; 88304; 93005; 93970; 96374; 96375; 96376; C1729; C9113; G0378; J0360; J0696; J1100; J1170; J1630; J1650; J2175; J2250; J2270; J2405; J2543; J2550; J2704; J3010; J3475; J3480; J3490; Q9961; Q9967; S0020; S0028; U0003; U0005

== ENCOUNTER 2021-02-21 10:30 | Outpatient (CLI) | payer MEDICARE | END 2021-02-21 10:31 | disposition home or self-care (01) | LOC: NM 10:30 | PROVIDERS: ATTEND Urology | DX: N13.30 Unspecified hydronephrosis (principal); R94.4 Abnormal results of kidney function studies | CPT/HCPCS: 78708; A4641; A9562 ==

== ENCOUNTER 2021-03-08 06:52 | Day surgery (SDC) | payer MEDICARE ==
[2021-03-03 11:15] VITALS: BMI 27.8
[2021-03-08 07:29] VITALS: BP 110/71; TEMP 98.2
[2021-03-08] MEDS ORDERED: Iopamidol 300 61% 50 ML VIAL FS ONE (09:11)
== END 2021-03-08 10:10 | disposition home or self-care (01) ==
LOC: SPEC 06:52
PROVIDERS: ATTEND Urology
PROC: 0T25X0Z Change Drainage Device in Kidney, External Approach (ICD-10-PCS; principal; 2021-03-08)
DX: N13.1 Hydronephrosis with ureteral stricture, not elsewhere classified (principal); R07.89 Other chest pain; E11.9 Type 2 diabetes mellitus without complications; I10 Essential (primary) hypertension; G89.29 Other chronic pain; M54.9 Dorsalgia, unspecified; Z85.41 Personal history of malignant neoplasm of cervix uteri; Z79.84 Long term (current) use of oral hypoglycemic drugs; Z79.899 Other long term (current) drug therapy; Z88.1 Allergy status to other antibiotic agents; Z88.2 Allergy status to sulfonamides
CPT/HCPCS: 50436; 71045; 71046; 75984; 93005; C1729; 50431; 93010; Q9967

== ENCOUNTER 2021-03-20 23:08 | Inpatient (IN) | payer MEDICARE ==
[2021-03-20] MEDS ORDERED: Acetaminophen 500 MG TAB ONE (23:22)
[2021-03-20 23:37] LABS: #Basophils 0.1 thou/uL (0.0-0.2); #Eosinphils 0.1 thou/uL (0.0-0.7); #Lymphocytes 1.6 thou/uL (1.20-3.40); #Monocytes 0.8 thou/uL (0.11-0.59); #Neutrophils 10.6 thou/uL (1.40-6.50); %Basophils 0.7 % (0.0-1.0); %Eosinophils 0.4 % (0.0-10.0); %Lymphocytes 12.2 % (21.0-51.0); %Monocytes 5.8 % (0.0-10.0); Hemoglobin 11.1 g/dL (12.0-16.0); Mean Corpuscular HGB CONC 32.5 g/dL (32.0-36.0); Mean Corpuscular Hemoglobin 27.4 pg (27.0-31.0); Mean Corpuscular Volume 84.4 fL (78.0-98.0); Platelet Count 198 thou/uL (130-400); RBC Distribution Width 17.1 % (11.5-14.5); Red Blood Cell (RBC) Count 4.04 mill/uL (4.20-5.40); White Blood Cell (WBC) Count 13.1 thou/uL (4.8-10.8)
[2021-03-20 23:56] LABS: Bilirubin Negative (Negative); Blood, Urine Large (Negative); Clarity Clear (Clear); Glucose, Urine (Dipstick) Negative (Negative); Ketone, Urine Negative (Negative); Leukocyte Moderate (Negative); Nitrite Negative (Negative); Protein, Urine (Dipstick) 100 mg/dL (Neg-Trace); Urobilinogen 0.2 mg/dL (Less than 2); pH, Urine 6.5 (5.0-9.0)
[2021-03-21] LABS: ALT (SGPT) 21 U/L (8-55); AST (SGOT) 28 U/L (5-34); Albumin 3.2 g/dL (3.4-4.8); Alkaline Phosphatase 85 U/L (40-110); Anion Gap 16 mmol/L (10-20); BUN (Urea Nitrogen) 9 mg/dL (9.8-20.1); Bilirubin, Total 0.6 mg/dL (0.2-1.2); Calc. Creatinine Clearance 0 mL/min (70-130); Calcium 8.5 mg/dL (7.8-10.44); Carbon Dioxide 22 mmol/L (23-31); Chloride 98 mmol/L (98-107); Globulin 3.6 g/dL (2.4-3.5); Glucose 193 mg/dL (80-115); Protein, Total 6.8 g/dL (5.8-8.1); Sodium 132 mmol/L (136-145)
[2021-03-21 00:05] LABS: Bacteria/HPF Rare-Few HPF (None Seen); Transitional Epithelial 0-3 HPF (None Seen)
[2021-03-21] MEDS ORDERED: Clindamycin/D5W 600 mg/50 ml Premix Bag ONE (00:25)
[2021-03-21] MEDS ORDERED: MEROPENEM 1 GM/50 ML 1 GM in Premix Bag 1 BAG IVPB SCH (01:45)
[2021-03-21] MEDS ORDERED: Norepinephrine 8 MG/0.9% NS 250 ML ONE (02:07)
[2021-03-21 04:45] VITALS: BMI 26.2
[2021-03-21 05:04] LABS: SARS-CoV-2 NAA Rapid Test DETECTED (NotDetected)
[2021-03-21] MEDS ORDERED: Ondansetron PF 4 MG/2 ML Vial IVP PRN (06:06)
[2021-03-21] MEDS ORDERED: Dextrose 50% Abboject 50 ML SYRINGE SLOW IVP PRN (06:07)
[2021-03-21] MEDS ORDERED: Dextrose 5% in Water 1,000 ML IV PRN (06:07)
[2021-03-21] MEDS ORDERED: HumaLOG 300 UNITS/3 ML VIAL SC PRN ×2 (06:07)
[2021-03-21] MEDS ORDERED: VANC IVPB PRN (06:09)
[2021-03-21] MEDS ORDERED: Norepinephrine 8 MG/0.9% NS 250 ML IVPB SCH (06:30)
[2021-03-21] MEDS: Sodium Chloride 0.9% 1,000 ML IV SCH ×2 (06:36→19:15)
[2021-03-21 06:40] LABS: #Monocytes 0.7 thou/uL (0.11-0.59); #Neutrophils 8.8 thou/uL (1.40-6.50); %Basophils 0.3 % (0.0-1.0); %Eosinophils 0.2 % (0.0-10.0); %Monocytes 6.3 % (0.0-10.0); %Neutrophils 76.1 % (42.0-75.0); Mean Corpuscular HGB CONC 32.2 g/dL (32.0-36.0); Mean Corpuscular Hemoglobin 27.3 pg (27.0-31.0); Mean Corpuscular Volume 84.7 fL (78.0-98.0); Mean Platelet Volume 8.8 fL (7.4-10.4); Platelet Count 162 thou/uL (130-400); RBC Distribution Width 16.9 % (11.5-14.5); Red Blood Cell (RBC) Count 3.31 mill/uL (4.20-5.40); White Blood Cell (WBC) Count 11.5 thou/uL (4.8-10.8)
[2021-03-21 07:04] LABS: Anion Gap 9 mmol/L (10-20); BUN (Urea Nitrogen) 7 mg/dL (9.8-20.1); Calc. Creatinine Clearance 85 mL/min (70-130); Calcium 7.2 mg/dL (7.8-10.44); Carbon Dioxide 23 mmol/L (23-31); Chloride 108 mmol/L (98-107); Glucose 132 mg/dL (80-115); Potassium 3.4 mmol/L (3.5-5.1); Sodium 137 mmol/L (136-145)
[2021-03-21] MEDS: VANCOMYCIN 1.25 GM/250 ML BAG 1.25 GM in Premix Bag 1 BAG IVPB SCH (07:23)
[2021-03-21] MEDS ORDERED: Famotidine 20 MG TAB PO SCH (09:00)
[2021-03-21] MEDS: Tobramycin Sulfate 0.3% Ophth Susp 5 ml Bottle FS SCH ×2 (10:01→19:59)
[2021-03-21] MEDS: MEROPENEM 1 GM/50 ML 1 GM in Premix Bag 1 BAG IVPB SCH ×2 (10:01→19:16)
[2021-03-21] MEDS ORDERED: Iopamidol-370 76% 500 ML 1 ML ONE (13:56)
[2021-03-21] MEDS: Micafungin 100 MG in Sodium Chloride 0.9% 100 ML IVPB SCH (18:04)
[2021-03-22] MEDS: MEROPENEM 1 GM/50 ML 1 GM in Premix Bag 1 BAG IVPB SCH ×3 (01:32→16:21)
[2021-03-22] MEDS: Sodium Chloride 0.9% 1,000 ML IV SCH ×2 (01:32→19:02)
[2021-03-22 06:27] LABS: #Eosinphils 0.1 thou/uL (0.0-0.7); #Lymphocytes 1.8 thou/uL (1.20-3.40); #Monocytes 0.5 thou/uL (0.11-0.59); %Basophils 0.1 % (0.0-1.0); %Eosinophils 1.6 % (0.0-10.0); %Lymphocytes 27.3 % (21.0-51.0); %Monocytes 7.9 % (0.0-10.0); Hemoglobin 8.8 g/dL (12.0-16.0); Mean Corpuscular HGB CONC 32.8 g/dL (32.0-36.0); Mean Corpuscular Hemoglobin 28.1 pg (27.0-31.0); Mean Corpuscular Volume 85.8 fL (78.0-98.0); Mean Platelet Volume 8.7 fL (7.4-10.4); Platelet Count 159 thou/uL (130-400); RBC Distribution Width 16.7 % (11.5-14.5); Red Blood Cell (RBC) Count 3.11 mill/uL (4.20-5.40); White Blood Cell (WBC) Count 6.4 thou/uL (4.8-10.8)
[2021-03-22 06:51] LABS: Anion Gap 8 mmol/L (10-20); BUN (Urea Nitrogen) 4 mg/dL (9.8-20.1); Calc. Creatinine Clearance 91 mL/min (70-130); Calcium 7.7 mg/dL (7.8-10.44); Carbon Dioxide 24 mmol/L (23-31); Chloride 109 mmol/L (98-107); Glucose 78 mg/dL (80-115); Potassium 3.2 mmol/L (3.5-5.1); Sodium 138 mmol/L (136-145)
[2021-03-22] MEDS ORDERED: CHOLESTYRAMINE 4 GM PO SCH (09:00)
[2021-03-22] MEDS ORDERED: [UNRECOGNIZED DRUG - OTHER] PO SCH (09:00)
[2021-03-22] MEDS ORDERED: Non-Formulary Item 1 EACH (Mecobalamin [B12 Active] 1,000 MCG Tab.Chew) PO SCH (09:00)
[2021-03-22] MEDS ORDERED: Non-Formulary Item 1 EACH (Omeprazole [Omeprazole] 20 MG Tablet.Dr) PO SCH (09:00)
[2021-03-22] MEDS: Acetaminophen 325 MG TAB PO PRN ×2 (09:39→17:35)
[2021-03-22] MEDS ORDERED: Fentanyl 100 MCG/2 ML VIAL ONE (10:55)
[2021-03-22] MEDS ORDERED: Morphine 4 MG/ML VIAL SLOW IVP PRN (12:31)
[2021-03-22] MEDS: Rosuvastatin 10 MG TAB PO SCH (12:55)
[2021-03-22] MEDS: HYDROcodone/Acetaminophen 5/325 mg Tablet PO PRN (12:55)
[2021-03-22] MEDS: Cyanocobalamin (Vitamin B-12) 1,000 MCG TAB PO SCH (12:55)
[2021-03-22] MEDS: VANCOMYCIN 1.25 GM/250 ML BAG 1.25 GM in Premix Bag 1 BAG IVPB SCH (12:56)
[2021-03-22] MEDS: Tobramycin Sulfate 0.3% Ophth Susp 5 ml Bottle FS SCH ×3 (12:56→20:51)
[2021-03-22] MEDS: Cholestyramine/Aspartame 4 gm Packet PO SCH (13:18)
[2021-03-22] MEDS ORDERED: Iopamidol 300 61% 50 ML VIAL FS ONE (14:14)
[2021-03-22 14:40] LABS: INR-International Normal Ratio 1.1; Prothrombin Time 14.2 sec (12.0-14.7)
[2021-03-22 14:41] LABS: PTT 41.1 sec (22.9-36.1)
[2021-03-22] MEDS: Micafungin 100 MG in Sodium Chloride 0.9% 100 ML IVPB SCH (18:08)
[2021-03-22 18:21] LABS: SARS-CoV-2 IgG Ab Non-Reactive (NonReactive)
[2021-03-22 18:51] LABS: SARS-CoV-2 IgG Index 0.04 S/CO (< 1.40)
[2021-03-22] MEDS ORDERED: Amitriptyline HCl 10 MG TAB PO SCH (21:00)
[2021-03-22] MEDS ORDERED: Non-Formulary Item 1 EACH (Gabapentin [Gabapentin] 600 MG Tablet) PO SCH (21:00)
[2021-03-22] MEDS ORDERED: Gabapentin 300 MG CAP PO SCH (21:00)
[2021-03-23] MEDS: MEROPENEM 1 GM/50 ML 1 GM in Premix Bag 1 BAG IVPB SCH ×2 (00:13→09:10)
[2021-03-23] MEDS: HYDROcodone/Acetaminophen 5/325 mg Tablet PO PRN ×2 (04:17→08:50)
[2021-03-23 07:20] LABS: #Eosinphils 0.1 thou/uL (0.0-0.7); #Lymphocytes 1.2 thou/uL (1.20-3.40); #Monocytes 0.3 thou/uL (0.11-0.59); #Neutrophils 5.4 thou/uL (1.40-6.50); %Basophils 0.5 % (0.0-1.0); %Eosinophils 1.7 % (0.0-10.0); %Lymphocytes 16.4 % (21.0-51.0); %Monocytes 4.8 % (0.0-10.0); %Neutrophils 76.6 % (42.0-75.0); Hemoglobin 9.4 g/dL (12.0-16.0); Mean Corpuscular HGB CONC 32.1 g/dL (32.0-36.0); Mean Corpuscular Hemoglobin 27.3 pg (27.0-31.0); Mean Platelet Volume 8.6 fL (7.4-10.4); Platelet Count 163 thou/uL (130-400); RBC Distribution Width 16.7 % (11.5-14.5); Red Blood Cell (RBC) Count 3.45 mill/uL (4.20-5.40); White Blood Cell (WBC) Count 7.1 thou/uL (4.8-10.8)
[2021-03-23] MEDS ORDERED: Lidocaine 1% w/Epinephrine 1:100K 20 ML VIAL ONE (07:24)
[2021-03-23 07:37] LABS: Anion Gap 11 mmol/L (10-20); BUN (Urea Nitrogen) Less than 4 mg/dL (9.8-20.1); Calc. Creatinine Clearance 91 mL/min (70-130); Calcium 7.7 mg/dL (7.8-10.44); Carbon Dioxide 23 mmol/L (23-31); Chloride 102 mmol/L (98-107); Glucose 104 mg/dL (80-115); Sodium 133 mmol/L (136-145)
[2021-03-23 07:41] LABS: Potassium 2.9 mmol/L (3.5-5.1)
[2021-03-23] MEDS ORDERED: Lidocaine 1% w/Epinephrine 1:100K 20 ML VIAL FS SCH (08:00)
[2021-03-23] MEDS: Rosuvastatin 10 MG TAB PO SCH (08:09)
[2021-03-23] MEDS: Cyanocobalamin (Vitamin B-12) 1,000 MCG TAB PO SCH (08:09)
[2021-03-23] MEDS: Cholestyramine/Aspartame 4 gm Packet PO SCH (08:09)
[2021-03-23] MEDS: Tobramycin Sulfate 0.3% Ophth Susp 5 ml Bottle FS SCH (08:09)
[2021-03-23] MEDS: Potassium Chloride 20 MEQ TAB PO SCH ×2 (08:49→13:39)
[2021-03-23 12:23] VITALS: BP 103/69; TEMP 98.2
[2021-03-23 12:29] LABS: Vancomycin, Trough 6.7 ug/mL
[2021-03-23] MEDS ORDERED: Vancomycin 1 GM in Premix Bag 1 BAG IVPB SCH (13:00)
[2021-03-23] MEDS ORDERED: VANCOMYCIN 1.25 GM/250 ML BAG 1.25 GM in Premix Bag 1 BAG IVPB SCH (13:00)
== END 2021-03-23 16:27 | disposition home or self-care (01) | DRG 698 ==
LOC: ERS 23:08 → ERHOLD 03-21 02:19 → CCU 03-21 04:19 → T4-B 03-21 16:06
PROVIDERS: ADMIT Internal Medicine; ATTEND Internal Medicine
PROC: 8E0ZXY6 Isolation (ICD-10-PCS; principal; 2021-03-21)
PROC: 3E033XZ Introduction of Vasopressor into Peripheral Vein, Percutaneous Approach (ICD-10-PCS; 2021-03-21)
PROC: 0T25X0Z Change Drainage Device in Kidney, External Approach (ICD-10-PCS; 2021-03-22)
PROC: BT131ZZ Fluoroscopy of Bilateral Kidneys using Low Osmolar Contrast (ICD-10-PCS; 2021-03-22)
PROC: 0W9F3ZZ Drainage of Abdominal Wall, Percutaneous Approach (ICD-10-PCS; 2021-03-23)
DX: T83.512A Infection and inflammatory reaction due to nephrostomy catheter, initial encounter (principal); A41.9 Sepsis, unspecified organism; R65.21 Severe sepsis with septic shock; U07.1 COVID-19; B37.49 Other urogenital candidiasis; B49 Unspecified mycosis; N30.40 Irradiation cystitis without hematuria; E11.9 Type 2 diabetes mellitus without complications; K21.9 Gastro-esophageal reflux disease without esophagitis; E78.5 Hyperlipidemia, unspecified; E78.00 Pure hypercholesterolemia, unspecified; I11.9 Hypertensive heart disease without heart failure; G89.29 Other chronic pain; D64.9 Anemia, unspecified; H60.92 Unspecified otitis externa, left ear; B95.62 Methicillin resistant Staphylococcus aureus infection as the cause of diseases classified elsewhere; N13.9 Obstructive and reflux uropathy, unspecified; Z92.3 Personal history of irradiation; Z92.21 Personal history of antineoplastic chemotherapy; Z85.41 Personal history of malignant neoplasm of cervix uteri; Z90.710 Acquired absence of both cervix and uterus; Z83.3 Family history of diabetes mellitus; Z88.1 Allergy status to other antibiotic agents; Z79.84 Long term (current) use of oral hypoglycemic drugs; Z79.899 Other long term (current) drug therapy; Z90.49 Acquired absence of other specified parts of digestive tract; Z84.1 Family history of disorders of kidney and ureter; Z82.49 Family history of ischemic heart disease and other diseases of the circulatory system; Y84.8 Other medical procedures as the cause of abnormal reaction of the patient, or of later complication, without mention of misadventure at the time of the procedure
CPT/HCPCS: 0240U; 36415; 36416; 50431; 50436; 71045; 74177; 75984; 80048; 80053; 80202; 81003; 81015; 83605; 84484; 85025; 85610; 85730; 86769; 87040; 87070; 87077; 87086; 87186; 87205; 96365; 96367; 96375; C1729; J2185; J2248; J2270; J3010; J3370; J3490; Q9967

== ENCOUNTER 2021-04-21 06:53 | Day surgery (SDC) | payer MEDICARE ==
[2021-04-20 14:58] VITALS: BMI 24.8
[2021-04-21 07:45] VITALS: BP 129/74; TEMP 97.4
[2021-04-21] MEDS ORDERED: Iopamidol 300 61% 50 ML VIAL FS ONE (10:26)
== END 2021-04-21 09:45 | disposition home or self-care (01) ==
LOC: SPEC 06:53
PROVIDERS: ATTEND Urology
PROC: 0T25X0Z Change Drainage Device in Kidney, External Approach (ICD-10-PCS; principal; 2021-04-21)
DX: N13.1 Hydronephrosis with ureteral stricture, not elsewhere classified (principal); E11.9 Type 2 diabetes mellitus without complications; I10 Essential (primary) hypertension; E78.5 Hyperlipidemia, unspecified; G89.29 Other chronic pain; M54.5 Low back pain; N39.46 Mixed incontinence; Z85.41 Personal history of malignant neoplasm of cervix uteri; Z79.84 Long term (current) use of oral hypoglycemic drugs; Z79.899 Other long term (current) drug therapy; Z88.1 Allergy status to other antibiotic agents; Z88.2 Allergy status to sulfonamides
CPT/HCPCS: 50436; 75984; C1729; 50431; Q9967

== ENCOUNTER 2021-06-19 12:51 | Day surgery (SDC) | payer MEDICARE ==
[2021-06-16 14:23] VITALS: BMI 24.8
[~2021-06-19 12:51] MED LIST: Iopamidol 300 61% 50 ML VIAL FS ONE
[2021-06-19 13:25] VITALS: TEMP 97.7
[2021-06-19 15:11] VITALS: BP 137/66
== END 2021-06-19 15:00 | disposition home or self-care (01) ==
LOC: MERGE 12:51 → SPEC 12:51
PROVIDERS: ATTEND Urology
PROC: 0T25X0Z Change Drainage Device in Kidney, External Approach (ICD-10-PCS; principal; 2021-06-19)
DX: N13.1 Hydronephrosis with ureteral stricture, not elsewhere classified (principal); G89.29 Other chronic pain; M54.5 Low back pain; I10 Essential (primary) hypertension; E78.5 Hyperlipidemia, unspecified; E11.9 Type 2 diabetes mellitus without complications; N30.21 Other chronic cystitis with hematuria; N39.46 Mixed incontinence; Z85.41 Personal history of malignant neoplasm of cervix uteri; Z79.84 Long term (current) use of oral hypoglycemic drugs; Z79.899 Other long term (current) drug therapy; Z88.1 Allergy status to other antibiotic agents; Z88.2 Allergy status to sulfonamides
CPT/HCPCS: 50431; 50436; C1729; Q9967

== ENCOUNTER 2021-07-21 08:55 | Day surgery (SDC) | payer MEDICARE ==
[2021-07-13 12:28] VITALS: BMI 24.8
[2021-07-21 14:04] VITALS: BP 129/73; TEMP 97.6
== END 2021-07-21 11:00 | disposition home or self-care (01) ==
LOC: SPEC 08:55
PROVIDERS: ATTEND Urology
PROC: 0T25X0Z Change Drainage Device in Kidney, External Approach (ICD-10-PCS; principal; 2021-07-21)
DX: N13.1 Hydronephrosis with ureteral stricture, not elsewhere classified (principal); Z85.41 Personal history of malignant neoplasm of cervix uteri; Z79.84 Long term (current) use of oral hypoglycemic drugs; Z79.899 Other long term (current) drug therapy; Z88.1 Allergy status to other antibiotic agents; Z88.2 Allergy status to sulfonamides
CPT/HCPCS: 50436; C1729

== ENCOUNTER 2021-08-18 06:56 | Day surgery (SDC) | payer MEDICARE ==
[2021-08-16 12:57] VITALS: BMI 24.8
[2021-08-18 09:50] VITALS: BP 139/75; TEMP 98.3
[2021-08-18] MEDS ORDERED: Iopamidol 300 61% 50 ML VIAL FS ONE (10:30)
[2021-08-18] MEDS ORDERED: FLU VACC QS2021-22(65YR UP)/PF 240 MCG/0.7 ML SYRINGE IM ONE (13:45)
== END 2021-08-18 09:15 | disposition home or self-care (01) ==
LOC: SPEC 06:56
PROVIDERS: ATTEND Urology
PROC: 0T25X0Z Change Drainage Device in Kidney, External Approach (ICD-10-PCS; principal; 2021-08-18)
DX: N13.1 Hydronephrosis with ureteral stricture, not elsewhere classified (principal); Z85.41 Personal history of malignant neoplasm of cervix uteri; Z79.84 Long term (current) use of oral hypoglycemic drugs; Z79.899 Other long term (current) drug therapy; Z88.1 Allergy status to other antibiotic agents; Z88.2 Allergy status to sulfonamides
CPT/HCPCS: 50431; 50436; 75984; C1729; Q9967

== ENCOUNTER 2021-09-15 06:54 | Day surgery (SDC) | payer MEDICARE ==
[2021-09-15 08:47] VITALS: BP 138/69; TEMP 97.9
[2021-09-15] MEDS ORDERED: Iopamidol 300 61% 50 ML VIAL FS ONE (10:17)
== END 2021-09-15 09:35 | disposition home or self-care (01) ==
LOC: SPEC 06:54
PROVIDERS: ATTEND Urology
PROC: 0T25X0Z Change Drainage Device in Kidney, External Approach (ICD-10-PCS; principal; 2021-09-15)
DX: N13.1 Hydronephrosis with ureteral stricture, not elsewhere classified (principal); N30.41 Irradiation cystitis with hematuria; G89.29 Other chronic pain; M54.50 Low back pain, unspecified; I10 Essential (primary) hypertension; E78.5 Hyperlipidemia, unspecified; E11.9 Type 2 diabetes mellitus without complications; N39.46 Mixed incontinence; Z85.41 Personal history of malignant neoplasm of cervix uteri; Z79.84 Long term (current) use of oral hypoglycemic drugs; Z79.899 Other long term (current) drug therapy; Z88.1 Allergy status to other antibiotic agents; Z88.2 Allergy status to sulfonamides
CPT/HCPCS: 50431; 50436; 75984; C1729; Q9967

== ENCOUNTER 2023-01-02 11:41 | Outpatient (CLI) | payer MEDICARE | END 2023-01-02 11:42 | disposition home or self-care (01) | LOC: BICMAMMO 11:41 | PROVIDERS: ATTEND Family Medicine | DX: Z12.31 Encounter for screening mammogram for malignant neoplasm of breast (principal) | CPT/HCPCS: 77063; 77067 ==

== ENCOUNTER 2023-05-10 11:06 | Outpatient (CLI) | payer MEDICARE | END 2023-05-10 11:07 | disposition home or self-care (01) | LOC: RAD 11:06 | PROVIDERS: ATTEND Surgery | DX: M80.00XD Age-related osteoporosis with current pathological fracture, unspecified site, subsequent encounter for fracture with routine healing (principal) ==

== ENCOUNTER 2023-05-24 10:39 | Outpatient (CLI) | payer MEDICARE | END 2023-05-24 10:40 | disposition home or self-care (01) | LOC: BICMAMMO 10:39 | PROVIDERS: ATTEND Surgery | DX: M80.00XA Age-related osteoporosis with current pathological fracture, unspecified site, initial encounter for fracture (principal) | CPT/HCPCS: 77080 ==

== ENCOUNTER 2023-06-03 08:34 | Outpatient (CLI) | payer MEDICARE | END 2023-06-03 08:35 | disposition home or self-care (01) | LOC: CT 08:34 | PROVIDERS: ATTEND Anesthesiology Pain Medicine | DX: S32.000A Wedge compression fracture of unspecified lumbar vertebra, initial encounter for closed fracture (principal); S22.080A Wedge compression fracture of T11-T12 vertebra, initial encounter for closed fracture; M41.9 Scoliosis, unspecified; M48.061 Spinal stenosis, lumbar region without neurogenic claudication; S22.089D Unspecified fracture of T11-T12 vertebra, subsequent encounter for fracture with routine healing | CPT/HCPCS: 72128; 72131 ==

== ENCOUNTER 2023-06-18 12:01 | Day surgery (SDC) | payer MEDICARE ==
[2023-06-17 12:16] VITALS: BMI 27.2
[2023-06-18] MEDS ORDERED: Bupivacaine PF 0.5% 30 ML VIAL ONE (13:21)
[2023-06-18] MEDS ORDERED: methylPREDNISolone Acetate 40 mg/ml Vial ONE (13:21)
[2023-06-18] MEDS ORDERED: Iopamidol 20 ML FS ONE (13:21)
[2023-06-18] MEDS ORDERED: Triamcinolone 40 MG/ML VIAL ONE (13:21)
[2023-06-18] MEDS ORDERED: Lidocaine 1% (PF) 30 ML VIAL ONE (13:21)
[2023-06-18 13:51] LABS: INR-International Normal Ratio 1.1; Prothrombin Time 14.4 sec (12.0-14.7)
[2023-06-18 13:52] LABS: PTT 30.1 sec (22.9-36.1)
[2023-06-18] MEDS ORDERED: CEFAZOLIN 1 GM VIAL ONE (14:04)
[2023-06-18] MEDS ORDERED: Sodium Chloride 0.9% 100 ML ONE (14:04)
[2023-06-18 14:07] LABS: Anion Gap 13 mmol/L (10-20); BUN (Urea Nitrogen) 20 mg/dL (9.8-20.1); Calc. Creatinine Clearance 46 mL/min (70-130); Calcium 9.6 mg/dL (7.8-10.44); Carbon Dioxide 22 mmol/L (23-31); Chloride 108 mmol/L (98-107); Estimated GFR 56; Glucose 94 mg/dL (83-110); Potassium 4.7 mmol/L (3.5-5.1); Sodium 138 mmol/L (136-145)
[2023-06-18] MEDS ORDERED: Ondansetron PF 4 MG/2 ML Vial ONE (14:28)
[2023-06-18] MEDS ORDERED: Lidocaine 1% PF 5 ML VIAL ONE (14:28)
[2023-06-18] MEDS ORDERED: Rocuronium Bromide 10 MG/ML (10ML VIAL) ONE (14:28)
[2023-06-18] MEDS ORDERED: PHENYLEPHRINE-NS 100 MCG/ML 10 ML SYRINGE ONE (14:28)
[2023-06-18] MEDS ORDERED: Dexamethasone 20 MG/5 ML VIAL ONE (14:28)
[2023-06-18] MEDS ORDERED: Glycopyrrolate 0.2 MG/ML 5 ML SYRINGE ONE (14:28)
[2023-06-18] MEDS ORDERED: ePHEDrine Sulfate 50 MG/10 ML VIAL ONE (14:28)
[2023-06-18] MEDS ORDERED: NEOSTIGMINE 3 MG/3 ML SYR 3 MG/3 ML SYRINGE ONE (14:28)
[2023-06-18] MEDS ORDERED: PROPOFOL 200 MG/20 ML VIAL ONE (14:28)
[2023-06-18] MEDS ORDERED: EPINEPHrine 1 MG/ML AMP ONE (14:46)
== END 2023-06-18 17:25 | disposition home or self-care (01) ==
LOC: SDC 12:01
PROVIDERS: ATTEND Anesthesiology Pain Medicine
PROC: 0QS03ZZ Reposition Lumbar Vertebra, Percutaneous Approach (ICD-10-PCS; principal; 2023-06-18)
PROC: 0QU03JZ Supplement Lumbar Vertebra with Synthetic Substitute, Percutaneous Approach (ICD-10-PCS; 2023-06-18)
PROC: 0PB43ZX Excision of Thoracic Vertebra, Percutaneous Approach, Diagnostic (ICD-10-PCS; 2023-06-18)
DX: S22.080A Wedge compression fracture of T11-T12 vertebra, initial encounter for closed fracture (principal); S32.000A Wedge compression fracture of unspecified lumbar vertebra, initial encounter for closed fracture; S32.89XA Fracture of other parts of pelvis, initial encounter for closed fracture; S32.10XA Unspecified fracture of sacrum, initial encounter for closed fracture; I10 Essential (primary) hypertension; E78.5 Hyperlipidemia, unspecified; N30.91 Cystitis, unspecified with hematuria; M48.061 Spinal stenosis, lumbar region without neurogenic claudication; E11.9 Type 2 diabetes mellitus without complications; N12 Tubulo-interstitial nephritis, not specified as acute or chronic; Z90.710 Acquired absence of both cervix and uterus; Z79.84 Long term (current) use of oral hypoglycemic drugs; Z88.2 Allergy status to sulfonamides; Z79.899 Other long term (current) drug therapy
CPT/HCPCS: 72080; 80048; 85610; 85730; 88307; 88342; J0171; J0690; J1030; J1100; J2001; J2405; J2704; J3301; J3490; Q9966; S0020

== ENCOUNTER 2023-09-03 13:26 | Outpatient (CLI) | payer MEDICARE | END 2023-09-03 13:27 | disposition home or self-care (01) | LOC: BICRAD 13:26 | PROVIDERS: ATTEND Nurse Practitioner Family | DX: R05.9 Cough, unspecified (principal); R09.89 Other specified symptoms and signs involving the circulatory and respiratory systems; K44.9 Diaphragmatic hernia without obstruction or gangrene | CPT/HCPCS: 71046 ==

== ENCOUNTER 2023-09-18 07:27 | Outpatient (CLI) | payer MEDICARE ==
[2023-09-18] MEDS ORDERED: Iopamidol 370 76% 100 ML VIAL ONE (09:29)
== END 2023-09-18 07:28 | disposition home or self-care (01) ==
LOC: CT 07:27
PROVIDERS: ATTEND Nurse Practitioner Family
DX: I70.0 Atherosclerosis of aorta (principal); K44.9 Diaphragmatic hernia without obstruction or gangrene; R93.89 Abnormal findings on diagnostic imaging of other specified body structures; R91.8 Other nonspecific abnormal finding of lung field; I77.4 Celiac artery compression syndrome
CPT/HCPCS: 71270; 76705; 76775; 82565; Q9967

== ENCOUNTER 2024-02-13 11:09 | Outpatient (CLI) | payer MEDICARE | END 2024-02-13 11:10 | disposition home or self-care (01) | LOC: BICMAMMO 11:09 | PROVIDERS: ATTEND Nurse Practitioner Family | DX: Z12.31 Encounter for screening mammogram for malignant neoplasm of breast (principal); N64.89 Other specified disorders of breast | CPT/HCPCS: 77063; 77067 ==

== ENCOUNTER 2024-02-28 09:57 | Outpatient (CLI) | payer MEDICARE | END 2024-02-28 09:58 | disposition home or self-care (01) | LOC: BICMAMMO 09:57 | PROVIDERS: ATTEND Nurse Practitioner Family | DX: N64.89 Other specified disorders of breast (principal) | CPT/HCPCS: 76642; 77065; G0279 ==

== ENCOUNTER 2024-04-21 17:40 | Inpatient (IN) | payer MEDICARE ==
[2024-04-21 18:33] LABS: #Basophils Less than 0.03 10x3/uL (0.0-0.2); %Basophils 0.2 % (0.0-1.0); %Eosinophils 0.3 % (0.0-10.0); %Lymphocytes 19.6 % (21.0-51.0); %Monocytes 11.3 % (0.0-10.0); %Neutrophils 68.3 % (42.0-75.0); Hematocrit 28.3 % (36.0-47.0); Hemoglobin 9.1 g/dL (12.0-16.0); Mean Corpuscular HGB CONC 32.2 g/dL (32.0-36.0); Mean Corpuscular Volume 87.1 fL (78.0-98.0); Mean Platelet Volume 11.4 fL (7.4-10.4); Platelet Count 174 10x3/uL (130-400); RBC Distribution Width 16.3 % (11.5-14.5); Red Blood Cell (RBC) Count 3.25 mill/uL (4.20-5.40)
[2024-04-21 18:42] LABS: Bilirubin Negative (Negative); Blood, Urine Negative (Negative); CAUTI Indications for Culture Dysuria,urgency,freq; Clarity Turbid (Clear); Glucose, Urine (Dipstick) Normal (Negative); Ketone, Urine Negative (Negative); Leukocyte 250 Leu/uL (Negative); Nitrite Negative (Negative); Protein, Urine (Dipstick) Negative (Neg-Trace); RBC/HPF 0-3 HPF (0-3); Specific Gravity, Urine 1.006 (1.002-1.036); Squamous Epithelial None Seen HPF (0-3); Urobilinogen Normal mg/dL (Less than 2)
[2024-04-21 18:44] LABS: Bacteria/HPF 1+ HPF (None Seen); Urine Culture Reflex Yes Yes
[2024-04-21 18:48] LABS: ALT (SGPT) 20 U/L (8-55); AST (SGOT) 22 U/L (5-34); Albumin 3.3 g/dL (3.4-4.8); Alkaline Phosphatase 89 U/L (40-110); Anion Gap 13 mmol/L (10-20); BUN (Urea Nitrogen) 15 mg/dL (9.8-20.1); Bilirubin, Total 0.8 mg/dL (0.2-1.2); Calc. Creatinine Clearance 0 mL/min (70-130); Calcium 9.2 mg/dL (7.8-10.44); Carbon Dioxide 24 mmol/L (23-31); Chloride 99 mmol/L (98-107); Estimated GFR 68; Globulin 3.9 g/dL (2.4-3.5); Glucose 112 mg/dL (83-110); Potassium 4.1 mmol/L (3.5-5.1); Protein, Total 7.2 g/dL (5.8-8.1); Sodium 132 mmol/L (136-145)
[2024-04-21 18:50] LABS: INR-International Normal Ratio 1.1; PTT 37.1 sec (22.9-36.1); Prothrombin Time 14.3 sec (12.0-14.7)
[2024-04-21 19:01] LABS: Troponin I Less than 0.010 ng/mL (< 0.028)
[2024-04-21] MEDS ORDERED: Sodium Chloride 0.9% 100 ML ONE (19:19)
[2024-04-21] MEDS ORDERED: cefTRIAXone (ROCEPHIN) 2 GM VIAL ONE (19:19)
[2024-04-21] MEDS ORDERED: traMADol HCl 50 MG TAB PO PRN (21:07)
[2024-04-21] MEDS ORDERED: Ondansetron ODT 4 MG TAB SL PRN (21:30)
[2024-04-21] MEDS ORDERED: Ondansetron PF 4 MG/2 ML Vial IVP PRN (21:30)
[2024-04-21] MEDS ORDERED: Glucagon 1 MG/ML KIT IM PRN (21:32)
[2024-04-21] MEDS ORDERED: Dextrose 5% in Water 1,000 ML IV PRN (21:32)
[2024-04-21] MEDS ORDERED: Insulin Lispro 100 UNIT/ML 10 ML VIAL SC PRN (21:38)
[2024-04-21] MEDS: Sodium Chloride 0.9% 1,000 ML IV SCH (22:30)
[2024-04-22] MEDS: Acetaminophen 325 MG TAB PO SCH (00:15)
[2024-04-22] MEDS ORDERED: Acetaminophen 325 MG TAB ONE ×4 (01:00→11:39)
[2024-04-22 05:30] LABS: #Basophils 0.03 10x3/uL (0.0-0.2); %Basophils 0.4 % (0.0-1.0); %Eosinophils 2.1 % (0.0-10.0); %Lymphocytes 20.7 % (21.0-51.0); %Monocytes 11.4 % (0.0-10.0); %Neutrophils 64.9 % (42.0-75.0); Hematocrit 26.4 % (36.0-47.0); Hemoglobin 8.4 g/dL (12.0-16.0); Mean Corpuscular HGB CONC 31.8 g/dL (32.0-36.0); Mean Corpuscular Hemoglobin 27.9 pg (27.0-31.0); Mean Corpuscular Volume 87.7 fL (78.0-98.0); Mean Platelet Volume 10.8 fL (7.4-10.4); Platelet Count 160 10x3/uL (130-400); RBC Distribution Width 16.6 % (11.5-14.5); Red Blood Cell (RBC) Count 3.01 mill/uL (4.20-5.40)
[2024-04-22 05:52] LABS: ALT (SGPT) 16 U/L (8-55); AST (SGOT) 18 U/L (5-34); Albumin 2.8 g/dL (3.4-4.8); Alkaline Phosphatase 74 U/L (40-110); Anion Gap 12 mmol/L (10-20); BUN (Urea Nitrogen) 14 mg/dL (9.8-20.1); Bilirubin, Total 0.5 mg/dL (0.2-1.2); Calc. Creatinine Clearance 56 mL/min (70-130); Calcium 8.7 mg/dL (7.8-10.44); Carbon Dioxide 21 mmol/L (23-31); Chloride 108 mmol/L (98-107); Estimated GFR 71; Globulin 3.3 g/dL (2.4-3.5); Glucose 79 mg/dL (83-110); Potassium 4.2 mmol/L (3.5-5.1); Protein, Total 6.1 g/dL (5.8-8.1); Sodium 137 mmol/L (136-145)
[2024-04-22] MEDS ORDERED: ACARBOSE 25 MG PO SCH (09:00)
[2024-04-22] MEDS ORDERED: Famotidine 20 MG TAB ONE (09:43)
[2024-04-22] MEDS ORDERED: Lisinopril 10 MG TAB ONE (09:43)
[2024-04-22] MEDS ORDERED: Enoxaparin 40 MG (0.4 mL) SYRINGE ONE (09:43)
[2024-04-22] MEDS: Famotidine 20 MG TAB PO SCH (09:46)
[2024-04-22] MEDS: Lisinopril 10 MG TAB PO SCH (09:46)
[2024-04-22] MEDS: Enoxaparin 40 MG (0.4 mL) SYRINGE SC SCH (09:47)
[2024-04-22] MEDS: Rosuvastatin 10 MG TAB PO SCH ×2 (10:23→20:15)
[2024-04-22] MEDS: Escitalopram Oxalate 10 mg Tablet PO SCH (11:45)
[2024-04-22] MEDS: Floranex 1 GM Packet PO SCH (11:55)
[2024-04-22 14:52] VITALS: BMI 27.2
[2024-04-22] MEDS: GoLYTELY 4,000 ml Bottle PO SCH (16:20)
[2024-04-22] MEDS: Mirtazapine 15 MG TAB PO SCH (20:14)
[2024-04-22] MEDS: Donepezil HCl 5 MG TAB PO SCH (20:14)
[2024-04-22] MEDS: Amitriptyline HCl 25 MG TAB PO SCH (20:14)
[2024-04-22] MEDS: cefTRIAXone\\ROCEPHIN 1 GM in Sodium Chloride 0.9% 100 ML IVPB SCH (20:15)
[2024-04-23] MEDS: Dextrose 50% Abboject 50 ML SYRINGE SLOW IVP PRN (06:02)
[2024-04-23] MEDS ORDERED: PROPOFOL 40 ML ONE (09:24)
[2024-04-23] MEDS ORDERED: Lidocaine 2% PF 5 ML VIAL ONE (09:25)
[2024-04-23] MEDS ORDERED: Dextrose 50% Abboject 50 ML SYRINGE ONE (10:23)
[2024-04-23 11:02] LABS: #Basophils Less than 0.03 10x3/uL (0.0-0.2); %Basophils 0.4 % (0.0-1.0); %Eosinophils 1.3 % (0.0-10.0); %Lymphocytes 19.5 % (21.0-51.0); %Monocytes 8.8 % (0.0-10.0); %Neutrophils 69.6 % (42.0-75.0); Hematocrit 27.8 % (36.0-47.0); Hemoglobin 8.7 g/dL (12.0-16.0); Mean Corpuscular HGB CONC 31.3 g/dL (32.0-36.0); Mean Corpuscular Hemoglobin 27.2 pg (27.0-31.0); Mean Corpuscular Volume 86.9 fL (78.0-98.0); Mean Platelet Volume 10.8 fL (7.4-10.4); Platelet Count 196 10x3/uL (130-400); RBC Distribution Width 16.3 % (11.5-14.5)
[2024-04-23] MEDS ORDERED: fentaNYL 50 mcg/mL 1 mL Vial ONE (11:10)
[2024-04-23] MEDS ORDERED: ePHEDrine Sulfate 50 MG/10 ML VIAL ONE (11:19)
[2024-04-23] MEDS ORDERED: PHENYLEPHRINE-NS 100 MCG/ML 10 ML SYRINGE ONE (11:25)
[2024-04-23] MEDS: Pantoprazole DR 40 MG TAB PO SCH (12:44)
[2024-04-23 14:19] VITALS: BMI 27.2
[2024-04-24 08:10] LABS: Iron 21 ug/dL (50-170); Iron Binding Capacity, Total 315 mcg/dL (265-497)
[2024-04-24] MEDS ORDERED: Ferrous Sulfate 325 MG TAB PO SCH ×2 (09:30→17:00)
[2024-04-24 10:32] LABS: Ferritin 40.3 ng/mL (10-291)
[2024-04-24] MEDS: Enoxaparin 40 MG (0.4 mL) SYRINGE SC SCH (10:36)
[2024-04-24] MEDS: Insulin Lispro 100 UNIT/ML 10 ML VIAL SC PRN (11:35)
[2024-04-24 13:30] VITALS: BP 138/70; TEMP 97.8
== END 2024-04-24 12:40 | disposition home or self-care (01) | DRG 690 ==
LOC: ERS 17:40 → ERHOLD 21:09 → MSONC 04-22 13:43
PROVIDERS: ADMIT Internal Medicine; ATTEND Family Medicine
DX: N39.0 Urinary tract infection, site not specified (principal); E11.9 Type 2 diabetes mellitus without complications; K20.90 Esophagitis, unspecified without bleeding; F03.90 Unspecified dementia, unspecified severity, without behavioral disturbance, psychotic disturbance, mood disturbance, and anxiety; F32.A Depression, unspecified; I10 Essential (primary) hypertension; R62.7 Adult failure to thrive; Z68.27 Body mass index [BMI] 27.0-27.9, adult; E78.5 Hyperlipidemia, unspecified; Z88.8 Allergy status to other drugs, medicaments and biological substances; Z79.899 Other long term (current) drug therapy; Z79.84 Long term (current) use of oral hypoglycemic drugs; Z88.1 Allergy status to other antibiotic agents; K21.9 Gastro-esophageal reflux disease without esophagitis; E78.00 Pure hypercholesterolemia, unspecified; Z90.710 Acquired absence of both cervix and uterus; D64.9 Anemia, unspecified; K44.9 Diaphragmatic hernia without obstruction or gangrene; K29.40 Chronic atrophic gastritis without bleeding; K62.7 Radiation proctitis; K25.9 Gastric ulcer, unspecified as acute or chronic, without hemorrhage or perforation
CPT/HCPCS: 36415; 36416; 70450; 71045; 74177; 80053; 81001; 82607; 82728; 83540; 83550; 83605; 84484; 85025; 85610; 85730; 86850; 86900; 86901; 87040; 87077; 87086; 87186; 88305; 88342; 93005; 96374; J0696; J1650; J1815; J2001; J2704; J3010; J3490; J7050; J7999